=== PATIENT | female | born 1985 | race Asian ===

== ENCOUNTER 2024-05-09 09:07 | Outpatient (REF) | payer SELFPAY ==
--- OUTSIDE RECORDS SUMMARY | 2024-05-09 09:31 | XMS_ITS | Encounter Summary ---
Author Organization [employer] Address [address] [place] [address] [address] [place] [address] Care Team Providers Care Senior Oracle Developer Name Role Phone Maryann Galarza MD Primary Care Provider Reason for Visit * Consultation (Routine) - Pending Review Specialty Diagnoses / Procedures Referred By Reymundo lake Referred To Contact Nutrition Diagnoses Overweight Maryann Galarza MD [address] [place] [address] Phone: tel: fax: Referral ID Status Reason Start Date Expiration Date Visits Requested Visits Authorized [id number] Pending Review Specialty Services Required 03/05/2025 1 1 Encounter Details Date Type Department Care Team ([facility] st Contact Info) Description 04/25/2024 11:00 AM EST Nutrition [facility] DIABETES/NUTRITION [address] [place] [address] Carly Chappell, RD [address] [place] [address] Overweight Social History Tobacco Use Types Packs/Day Years Used Date Smoking Tobacco: Never Passive Smoke Exposure: Never Smokeless Tobacco: Never Alcohol Use Standard Drinks/Week Comments Yes 0 (1 standard drink = 0.6 oz pur e alcohol) socially Depression Answer Date Recorded Patient Health Questionnaire-9 Score 3 03/05/2024 Patient Health Questionnaire-9 Score 3 03/05/2024 Last PHQ-9: Questionnaire Data Not on file 1 05/06/2023 Housing Stability Answer Date Recorded What is your housing situation today? I have jacqueline ford 02/20/[address] you li ve. Do you have problems with any of the following? None of the above 02/20/2024 Food Insecurity Answer Date Recorded Within the past 12 months, y ou worried that your food would run out before you got money to buy more: Never True 02/20/2024 Within the past 12 months,th e food you bought just didn't last and you didn't have enough money to get more: Never True Transportation Answer Date Recorded In the past 12 months, has l ack of transportation kept you from medical appts, meetings, work or from getting things needed for daily living? No 02/20/2024 Utilities Answer Date Recorded In the past 12 months, has t he [employer], gas, oil or water company threatened to shut off services in your home? No 02/20/2024 Depression Answer Date Recorded Patient Health Questionnaire-2 Score 0 03/05/2024 Internet Access Answer Date Recorded Internet Access Q1 Yes 02/20/2024 Internet Access Q2 Not on file 02/20/2024 Comments Unknown Sex and Gender Information Value Date Recorded Sex Assigned at Female 03/05/2024 2:41 PM EST Legal Sex Female 2:41 PM EST Gender Identity Female 12/17/2023 10:33 AM EDT Sexual Orientation Straight 12/17/2023 10 :33 AM EDT documented as of this encounter Last Filed Vital Signs Vital Sign Reading Time Taken Comments Blood Pressure - - Pulse - - Temperature - - Respiratory Rate - - Oxygen Saturation - - Inhaled Oxygen Concentration - - Weight 65.6 kg (144 lb 9.6 oz) 04/28/2024 1:46 P M EST Height 160 cm (5' 3 ) 04/28/2024 1:46 PM EST Body Mass Index 25.61 04/28/2024 1:46 PM EST documented in this encounter Progress Notes * Carly Chappell RD - 04/25/2024 11:00 AM EST In Person Visit Medical Diagnosis: E66.3 Overweight Anthropometrics: Ht:5' 3 (1.6 m), Wt:144 lb 9.6 oz (65.6 kg), BMI: Body mass index is 25.61 kg/m??. Assessment: Patient (Pt) accepted nutrition education assessment appointment with RD. RD took Pt's weight. Weight revealed a slight increase since the last weight noted here in Pt's chart by 0.[address] took 24 hour recall/ typical daily intake from Pt. Intake revealed Pt's diet is high in refine carbohydrates and low in: protein, healthy fats, fresh and cooked vegetables, fruit, whole grains and fiber. Today, Pt only did the first half of First appointment. Once the second half of First appointment is finished, RD will fill in nutrition diagnosis, nutrition Intervention, goals, Tailored made meal plan, monitoring and evaluation will be put into Pt's chart here. Thus, all is to be followed by Pt with their agreement. The second half of First nutrition education assessment appointment is scheduled in the third week of April 2024. In the mean time, Pt agreed to work on: Rice from one cup to 1/2 cup Splenda in stead of the pink packet Try salads Try Skinny Pop and Smart food pop corn Food Allergies: shrimp Exercise: Pt works out at a gym four (4) days per week. Food Intolerance: Didn't say Food Preferences: Bagels, breads, rice, noodles, stews, fruit beverages: cranberries, sauces, rice, pasta, noodles, zucchini, broccoli, cucumbers, onions, garlic, mixed veg, water, stewed beef, stewed chicken, pork, beef, cream cheese, cheese, milk, 1/2 & 1/2 Food Dislikes: Red/ bloody meat- needs to be well done. Frequency of Eating Out/ Restaurant: Pt didn't say. Not the norm? Who Cooks?: Patient How much caffeine?: None; moringa tea How much sugary beverages?: none Diet History: Breakfast: Jose Alejandro, med.: one Cream cheese: 2-4 tablespoons Coffee: 1 cups Berries: 1/2 cup Snack: None Water: 1/2 cup Lunch: Rice: 1 cup Chicken: 4 oz. Broccoli: 3/4 cup Water: 2+ cups Snack: none Dinner: Rice: 1 1/2 cups Meat: 6-8 oz. Ve oz. Salad, fresh: 1-2 cups Water: 1-2 cups Snack: Cream cheese: amount not given Peanut butter: 1-2 tablespoons Nutrition Diagnosis: 1st half of First appointment was done today. When the 2nd half of First appointment is finished/ done, this area will be filled in. Nutrition Intervention: 1st half of First appointment was done today. When the 2nd half of First appointment is finished/ done, this area will be filled in. Monitoring and Evaluation: 1st half of First appointment was done today. When the 2nd half of First appointment is finished/ done, this area will be filled in. Provider: Carly Chappell RD, LDN documented in this encounter Plan of Treatment Upcoming Encounters Date Type Department Care Team (Late st Contact Info) Description 05/16/2024 9:00 AM EST Clinical Support [facility] DIABETES/NUTRITION [address] [place] [address] [place] [address] documented as of this encounter Visit Diagnoses Diagnosis Overweight documented in this encounter Additional Health Concerns Assessment Noted Time PHQ-9 Depression Total Score: 3 03/05/20 24 2:24 PM EST documented as of this encounter Care Teams Senior Oracle Developer Relationship Specialty Start Date End Date Maryann Galarza MD [address] [place] [address] PCP - General Family Medicine 02/11/24 documented as of this encounter
--- OUTSIDE RECORDS SUMMARY | 2024-05-09 09:31 | XMS_ITS | Encounter Summary ---
Author Organization [employer] Address [address] [facility] 7t [place] [address] Care Team Providers Care Accountant Cost Name Role Phone Maryann Galarza MD Primary Care Provider [phone] Encounter Details Date Type Department Care Team (Latest Contact Info) Description 04/25/2024 Travel Social History Tobacco Use Types Packs/Day Years [...] the past 12 months, has t he electric, gas, oil or water company threatened to [...] AM EDT documented as of this encounter Plan of Treatment Upcoming Encounters Date Type Department Care Team (Late st Contact Info) Description 05/16/2024 9:00 AM EST Clinical Support [facility] DIABETES/NUTRITION [address] [place] [address] [place] [address] documented as of this encounter Visit Diagnoses Not on filedocumented in this encounter Additional Health Concerns Assessment Noted Time PHQ-9 Depression Total Score: 3 03/05/20 2:24 PM EST documented as of this encounter Care Teams Accountant Cost Relationship Specialty Start Date End Date Maryann Galarza MD [address] [place] [address] PCP - General Family Medicine 02/11/24 documented as of this encounter
--- OUTSIDE RECORDS SUMMARY | 2024-05-09 09:31 | XMS_ITS | Encounter Summary ---
Author Organization [employer] Address [address] [facility] [address] [place] [address] Care Team Providers Care Paper Products Inspector Name Role Phone Maryann Galarza MD Primary Care Provider [phone] Encounter Details Date Type Department Care Team (Late st Contact Info) Description 04/01/2024 Orders Only [facility] CHC MED & PEDS [address] [place] [address] Provider, MD Mike Social History Tobacco Use Types Packs/Day Years [...] Description 05/16/2024 9:00 AM EST Clinical Support [facility] DIABETES/NUTRITION [address] [place], [place] [phone] Carly Chappell RD [address] [place] [address] documented as of this encounter Procedures Procedure Name Priority Date/Time Associated Diagnosis Comments SURGICAL PATHOLOGY Routine 02/12/2024 3:16 PM EST documented in this encounter Results * Surgical Pathology (02/12/2024 3:16 PM EST) us Historical Provider LAB PATHOLOGY ORDERABLES Final Result documented in this encounter Visit Diagnoses Not on filedocumented in this encounter Additional Health Concerns Assessment Noted Time PHQ-9 Depression Total Score: 3 03/05/20 24 2:24 PM EST documented as of this encounter Care Teams Paper Products Inspector Relationship Specialty Start Date End Date Maryann Galarza MD [address] [place] [address] PCP - General Family Medicine 02/11/24 documented as of this encounter
--- OUTSIDE RECORDS SUMMARY | 2024-05-09 09:31 | XMS_ITS | Encounter Summary ---
Author Organization [facility] [employer] Address [address] [place] [address] [place] [address] Care Team Providers Care Liquified Natural Gas Technician Name Role Phone Christiano Queen MD Primary Care Prov ider Maryann Galarza MD Primary Care Provider [phone] Encounter Details Date Type Department Care Team (Late st Contact Info) Description 12/20/2023 Orders Only [facility] [address] [place] [address] Provider, MD Mike Social History Tobacco Use Types Packs/Day Years Used Date Smoking Tobacco: Never Assessed Depression Answer Date Recorded Patient Health Questionnaire-9 Score 0 12/17/2023 Patient Health Questionnaire-9 Score 0 12/17/2023 Last PHQ-9: Questionnaire Data Not on file 0 12/17/2023 Depression Answer Date Recorded Patient Health Questionnaire-2 Score 0 12/17/2023 Comments Unknown Sex and Gender Information Value [...] Description 05/16/2024 9:00 AM EST Clinical Support [facility] DIABETES/NUTRITION [address] [place], [place] [phone] Carly Chappell RD [address] [place], [place] [phone] documented as of this encounter Procedures Procedure Name Priority Date/Time Associated Diagnosis Comments US ABDOMEN, RIGHT UPPER QUADRANT Routine 12/13/2023 10:43 AM EDT documented in this encounter Results * US ABDOMEN, RIGHT UPPER QUADRANT (12/13/2023 10:43 AM EDT) Anatomical Region Laterality Modality Abdomen Ultrasound us Historical Provider MD [facility] US PROCEDURES Final R esult documented in this encounter Visit Diagnoses Not on filedocumented in this encounter Additional Health Concerns Assessment Noted Time PHQ-9 Depression Total Score: 0 12/17/19 2:26 PM EDT documented as of this encounter Care Teams Liquified Natural Gas Technician Relationship Specialty Start Date End Date Christiano Queen MD [address] [place] [address] PCP - General Internal Medicine 12/19/23 02/10/24 Maryann Galarza MD [address] [place] [address] PCP - General Family Medicine 02/11/24 documented as of this encounter
--- OUTSIDE RECORDS SUMMARY | 2024-05-09 09:31 | XMS_ITS | Clinical Summary ---
Author Organization [employer] Address [address] [place] [address] 7t [place] [address] Care Team Providers Care Vascular Sonographer Name Role Phone Maryann Galarza MD Primary Care Provider [phone] Allergies Active Allergy Reactions Criticality Noted Date Comments Shrimp Flavor Agent (Non-Screening) Hives,Itching 03/04/2024 Medications omeprazole (PriLOSEC) [address] capsule Take 1 capsule (20 mg) by mouth before breakfast. 90 capsule 1 02/12/2024 Active oxyCODONE (Roxicodone) 5 MG immediate release tablet Take 5 mg by mouth every 6 (six) hours if needed. 02/13/2024 Active Meclizine HCl 25 MG chewable tablet Active benzonatate (Tessalon) 100 MG capsule Take 100 mg by mouth 3 times daily. 12/24/2023 Active albuterol 108 (90 Base) MCG/ACT inhaler TAKE 2 PUFFS (INHALATION) 4 TIMES PER DAY (SHORTNESS OF BREATH OR WHEEZING) FOR 14 DAYS 07/26/2023 Active Active Problems Problem Noted Date Diagnosed Date Overweight 03/05/2024 Assessment & Plan (03/05/2024 2:54 PM EST): Ordering labs and referring to Defect Repairer Glassware for further evaluation. Advised pt to schedule Pap Smear at earliest convenience. Generalized abdominal pain 02/11/2024 Assessment & Plan (02/11/2024 4:04 PM EST): Patient complains of similar ruq pain as in the past, graded 6/10, no radiation, denied fever/chills, nausea/vomiting/diarrhea, will refer to general surgery, er precautions reviewed. Also complains of epigastric pain, will send omeprazole, diet recommendations were given Encounter for medical examination to establish c are 01/16/2024 Assessment & Plan (01/16/2024 1:17 AM EDT): Not seen by a pcp in over 1 year Hospitalziation:- ER: 12/13/23 due to RUQ pain Pmhx: BPV All - Psh - Meds meclizine prn for vertigo Not sexually active A0 Has IUD unknown when was placed Pap smear was done but could not recall date Vertigo 01/16/2024 Assessment & Plan (01/16/2024 1:16 AM EDT): Patient on meclizine as needed RUQ pain 01/16/2024 Assessment & Plan (01/16/2024 1:22 AM EDT): Seen at er where a ultrasound was performed, found with gallstones, no acute cholecystitis, incidental 2.2 cm hypoechoic focus n right hepatic lobe that could be related to focal sparing of fatty infiltration, a non-urgent MRI was recommended. She was discharged with dx of biliary colic, pain/symptoms have not recurred. Will place mri order Gallbladder & bile duct ston e, acute cholecystitis and obstruction 12/13/2023 Encounters Date Type Department Care Team Description 04/25/2024 11:00 AM EST Nutrition [facility] DIABETES/NUTRITION [address] [place] [address] Overweight 04/25/2024 Travel 04/01/2024 Orders Only [facility] CHC MED & PEDS [address] [place] [address] Mike Navas MD 03/05/2024 2:00 PM EST Office Visit [facility] MED & PEDS [address] [place] [address] Maryann Galarza MD Overweight (Primary Dx); Encounter for immunization; Encounter for health-related screening 03/05/2024 Travel 03/05/2024 Telephone [facility] MED & PEDS [address] [place] [address] Maryann Galarza MD CHART PREP 02/20/2024 Patient Outreach [facility] MED & PEDS [address] [place] [address] Maryann Galarza MD Pre-visit Planning (SDOH negative, Tobacco screening negative.) 02/14/2024 Telephone [facility] [address] [place], [place] [phone] Christiano Queen MD 02/11/2024 3:15 PM EST Telemedicine [facility] MED & PEDS [address] [place] [address] Christiano Queen MD Generalized abdominal pain (Primary Dx) 02/11/2024 Refill [facility] MED & PEDS [address] [place] [address] Christiano Queen MD 02/11/2024 Travel from Last 3 Months Immunizations Name Administration Dates Next Due Influenza, IIV3, injectable 02/13/2024 Influenza, seasonal, injectable, preservative fr ee 02/13/2024 Pfizer Covid-19 Vaccine 12+ 03/05/2024 Tdap 03/05/2024 Family History Medical History Relation Name Comments Heart disease Father Diabetes Mother Cancer Neg Hx Relation Name Status Comments Father Mother Social History Tobacco Use Types Packs/Day Years Used Date Smoking Tobacco: Never Passive Smoke Exposure: Never Smokeless Tobacco: Never Tobacco Cessation:Counseling Given: Not Answered Alcohol Use Standard Drinks/Week Comments Yes 0 [...] Orientation Straight 12/17/2023 10 :33 AM EDT Last Filed Vital Signs Vital Sign Reading Time Taken Comments Blood Pressure 130/82 03/05/2024 2:21 PM EST Pulse 68 03/05/2024 2:21 PM EST Temperature 36.9 ??C (98.4 ??F) 03/05/2024 2:21 PM ES T Respiratory Rate 20 03/05/2024 2:21 PM EST Oxygen Saturation 98% 03/05/2024 2:21 PM EST Inhaled Oxygen Concentration - - Weight 65.6 kg (144 lb 9.6 oz) 04/28/2024 1:46 P M EST Height 160 cm (5' 3 ) 04/28/2024 1:46 PM EST Body Mass Index 25.61 04/28/2024 1:46 PM EST Plan of Treatment Upcoming Encounters Date Type Department Care Team (Late st Contact Info) Description 05/16/2024 9:00 AM EST Clinical Support [facility] DIABETES/NUTRITION [address] [place] [address] [place] [address] Health Maintenance Due Date Last Done Comments HIV Screening 1984 Family Planning (PISQ) 07/31/1999 Hepatitis C Screening 2002 Hepatitis A Vaccines (1 of 2 - Risk 2-dose series) 07/31/2003 Pap Smear 2005 Cervical Cancer Screening 2014 HPV/Cotest 2014 SDOH Screening 02/19/2025 02/20/2024 Alcohol/Substance Use Screening 03/05/2025 03/05/2024 Depression Screening 03/05/2025 03/05/2024, 03/05/20 24 Tobacco Screening 03/05/2025 03/05/2024 DTaP/Tdap/Td Vaccines (4 - Td or Tdap) 03/05/2034 03/05/2024, 07/23/2015, 04/26/2014 Zoster Vaccines (1 of 2) 2034 RSV Patients and Patients Aged 60 years or older (1 - 1-dose 75+ series) 07/31/2059 Pneumococcal Vaccine: Pediatrics (0 to 5 Years) and At-Risk Patients (6 to 49) Years) Aged Out 02/14/2016 No longer eligible based on patient's age to complete this topic Hepatitis B Vaccines Completed 07/27/2022, 06/26/2022, 12/11/2014, Additional history exists Influenza Vaccine Completed 02/13/2024, , 12/27/2020, Additional history exists COVID-19 Vaccine Completed 03/05/2024, 03/2020, 05/03/2020, Additional history exists HIB Vaccines Aged Out No longer eligi ble based on patient's age to complete this topic HPV Vaccines Aged Out No longer eligi ble based on patient's age to complete this topic IPV Vaccines Aged Out No longer eligi ble based on patient's age to complete this topic Meningococcal Vaccine Aged Out No lidia davi eligible based on patient's age to complete this topic RSV under 20 months Aged Out No longe r eligible based on patient's age to complete this topic Rotavirus Vaccines Aged Out No longer eligible based on patient's age to complete this topic Procedures Procedure Name Priority Date/Time Associated Diagnosis Comments SURGICAL PATHOLOGY Routine 02/12/2024 3:16 PM EST from Last 3 Months Results * Surgical Pathology (02/12/2024 3:16 PM EST) Historical Provider LAB PATHOLOGY ORDERABLES Final Result from Last 3 Months Insurance [facility] HMO Care Teams Vascular Sonographer Relationship Specialty Start Date End Date Maryann Galarza MD [address] [place] [phone] PCP - General Family Medicine 02/11/24
[2024-05-09 14:12] LABS: MANUAL DIFF FLAG NO
[2024-05-09 14:22] LABS: Basophils Absolute Auto 0.1 X10*3/uL (0.0-0.2); Basophils Percent Auto 1.2 % (0-2); Eosinophils Absolute Auto 0.1 X10*3/uL (0.0-0.4); Eosinophils Percent Auto 1.9 % (0-4); Hematocrit 38.4 % (37.0-47.0); Hemoglobin 12.3 g/dl (12.0-16.0); Imm Gran Abs Auto 0.02 X10*3/uL (0.00-0.03); Imm Gran Pct Auto 0.3 % (0.0-0.4); Lymphocytes Absolute Auto 1.8 X10*3/uL (1.2-4.9); Lymphocytes Percent Auto 30.2 % (20-40); Mean Corpuscular Hemoglobin 26.5 pg (27.0-33.0); Mean Corpuscular Volume 82.6 fL (80.0-98.0); Mean Platelet Volume 11.5 fL (9.4-12.3); Monocytes Absolute Auto 0.3 X10*3/uL (0.1-1.2); Monocytes Percent Auto 5.3 % (2-11); Neutrophils Absolute Auto 3.6 x10*3/uL (2.0-8.3); Neutrophils Percent Auto 61.1 % (45-73); Platelet Count 267 X10*3/uL (160-400); Red Blood Count 4.65 X10*6/uL (4.20-5.50); Red Cell Distribution Width 12.7 % (11.0-16.0); White Blood Count 5.9 X10*3/uL (4.8-10.8)
[2024-05-09 14:58] LABS: Alanine Aminotransferase 42 U/L (0-31); Albumin Level 4.4 g/dL (3.5-5.0); Alkaline Phosphatase 74 U/L (39-117); Anion Gap 10 (12-20); Aspartate Amino Transferase 29 U/L (5-31); Bilirubin Total 0.6 mg/dL (0.0-1.0); Blood Urea Nitrogen 10 mg/dL (9-16); Calcium 9.2 mg/dL (8.4-10.2); Carbon Dioxide 26 mmol/L (22-29); Chloride 108 mmol/L (96-108); Cholesterol 141 mg/dL (<200); Estimated Glomerular Filt Rate > 60; Glucose Fasting 98 mg/dL (60-99); HDL Cholesterol 46 mg/dL (>40); LDL Cholesterol Calculated 84 mg/dL (<100); Potassium 3.9 mmol/L (3.3-5.1); Sodium 140 mmol/L (135-145); Total Protein 7.8 g/dL (6.5-8.0); Triglycerides 58 mg/dL (<150)
[2024-05-09 14:59] LABS: TSH reflex Free T4 1.14 uIU/mL (0.32-4.0)
[2024-05-10 03:58] LABS: HBS Num1 78.23 mIU/mL (0-7.99); HBc Num1 0.25 S/CO (0.00-0.79); HBsAGNum1 0.38 S/CO (0.00-0.99); HIV AB/AG Nonreactive (Nonreactive); HIV Num 1 0.06 S/CO (0.00-0.99); Hepatitis B Core Antibody Nonreactive (Nonreactive); Hepatitis B Surface Antigen Negative (Negative); ~HepC Num1 0.81 S/CO (0.00-0.79); ~Hepatitis B Surface Antibody REACTIVE (Nonreactive)
[2024-05-10 04:37] LABS: ~HepC Num2 0.85; ~HepC Num3 0.83; ~Hepatitis C Antibody GRAYZONE (Nonreactive)
[2024-05-13 13:34] LABS: HCV Log PCR <1.18 NOT DETECTED Log IU/mL (NOT DETECTED); HepC Viral Load <15 NOT DETECTED IU/mL (NOT DETECTED)
== END 2024-05-09 09:08 | disposition home or self-care (01) ==
LOC: HO.CHCLDS 09:07
PROVIDERS: Visit Provider Family Medicine
DX: E66.3 Overweight (principal)
CPT/HCPCS: 36415; 80053; 80061; 84443; 85025; 86704; 86706; 86803; 87340; 87389; 87522

== ENCOUNTER 2025-01-06 10:00 | Outpatient (REF) | payer BC, SELFPAY ==
--- OUTSIDE RECORDS SUMMARY | 2025-01-06 09:20 | XMS_ITS | Encounter Summary ---
Author Organization [employer] Address [address] [place] [address] Care Team Providers Care Medical Record Administrator Name Role Phone Maryann Galarza MD Primary Care Provider [phone] Reason for Visit * Reason Comments Cervical Cancer Screening Encounter Details Date Type Department Care Team (Latest Contact Info) Description 01/06/2025 9:20 AM EDT Office Visit [facility] [address], [place] [phone] Maryann Galarza MD [address] [place] [address] Encounter for removal of intrauterine contraceptive device (IUD) (Primary Dx); Encounter for immunization; Overweight; STD (female); Cervical cancer screening Social History Tobacco Use Types Packs/Day Years [...] Sign Reading Time Taken Comments Blood Pressure 134/84 01/06/2025 9:18 AM EDT Pulse 76 01/06/2025 9:18 AM EDT Temperature 36.2 C (97.2 F) 01/06/2025 9:18 AM EDT Respiratory Rate 20 01/06/2025 9:18 AM EDT Oxygen Saturation 98% 01/06/2025 9:18 AM EDT Inhaled Oxygen Concentration - - Weight 67.8 kg (149 lb 6.4 oz) 01/06/2025 9:18 A M EDT Height 161 cm (5' 3.39 ) 01/06/2025 9:18 AM EDT Body Mass Index 26.14 01/06/2025 9:18 AM EDT documented in this encounter Progress Notes * Maryann Galarza MD - 01/06/2025 9:20 AM EDTAssociated Order(s): IUD Management Post-Procedure Diagnose(s): Cervical cancer screening Subjective Patient ID: Clau Carmona is a 39 y.o. female who presents for Cervical Cancer Screening. 39 y.o. female here for annual well woman preventive exam. LMP: No LMP recorded (lmp unknown). Sexual activity: Social History Substance and Sexual Activity Sexual activity: Not Currently Partners: Male control/protection: I.U.D. intention: BC method: Smoking hx: Tobacco Use: Low Risk (01/06/2025) Tobacco Smoking Tobacco Use: Never Smokeless Tobacco Use: Never Passive Exposure: Never Alcohol use hx: Social History Substance and Sexual Activity Alcohol use: Yes Comment: socially OBHx: No obstetric history on file. IPV: Denies IPV Reviewed family hx Review of patient's family history indicates: Problem: Diabetes Relation: Mother Name: Age of Onset: (Not Specified) Problem: Heart disease Relation: Father Name: Age of Onset: (Not Specified) Problem: Cancer Relation: Neg Hx Name: Age of Onset: (Not Specified) Health Maintenance: No results found for: HMPAP , HMMAMMO , HMCOLON Reports wants IUD removed due to cramps. Had Mirena, reports inserted 5-7 years ago. Discussed contraception. Review of Systems Constitutional: Negative for appetite change, fatigue and fever. HENT: Negative for congestion, postnasal drip and rhinorrhea. Eyes: Negative for discharge and redness. Respiratory: Negative for apnea, cough, chest tightness and shortness of breath. Cardiovascular: Negative for chest pain. Gastrointestinal: Negative for abdominal pain. Endocrine: Negative for polyphagia. Genitourinary: Negative for difficulty urinating, dysuria and urgency. Musculoskeletal: Negative for arthralgias. Neurological: Negative for dizziness, light-headedness, numbness and headaches. Hematological: Negative for adenopathy. Does not bruise/bleed easily. Objective BP 134/84 Pulse 76 Temp 97.2 ??F (36.2 ??C) (Oral) Resp 20 Ht 5' 3.39 (1.61 m) Wt 149 lb6.4 oz (67.8 kg) LMP (LMP Unknown) SpO2 98% BMI 26.14 kg/m?? Physical Exam Vitals reviewed. Exam conducted with a synoptic meteorologist present. HENT: Head: Normocephalic and atraumatic. Pulmonary: Effort: Pulmonary effort is normal. Chest: Chest wall: No deformity, tenderness or crepitus. Breasts: Breasts are symmetrical. Right: Normal. No inverted nipple, mass, nipple discharge, skin change or tenderness. Left: Normal. No inverted nipple, mass, nipple discharge, skin change or tenderness. Genitourinary: Urethra: No prolapse. Vagina: Normal. Cervix: Normal. Rectum: Normal. Musculoskeletal: Cervical back: Normal range of motion. Lymphadenopathy: Upper Body: Right upper body: No supraclavicular, axillary or pectoral adenopathy. Left upper body: No supraclavicular, axillary or pectoral adenopathy. Psychiatric: Mood and Affect: Mood normal. IUD Management Performed by: Maryann Galarza MD Authorized by: Maryann Galarza MD Procedure: IUD removal Consent obtained by patient, parent, or legal power of document review attorney - including discussion of procedurerisks and benefits, patient questions answered, and patient education provided: yes Reason for removal: patient request Strings visualized: yes Tenaculum applied to cervix: yes Cervix manually dilated: no IUD grasped by forceps: no Performed with ultrasound guidance: no IUD removed: yes Date/Time of Removal: 01/06/2025 10:01 AM Removed without complications: yes IUD intact: yes Removal comments: Removed by Yadira Kohler NP under direct supervision from Chastity Galarza MD Assessment/Plan Problem List Items Addressed This Visit Overweight Will check labs Relevant Medications levonorgestrel (Plan B) 1.5 MG tablet Other Relevant Orders Lipid Panel, Standard CBC auto differential Comprehensive Metabolic Panel TSH W/Reflex to FT4 Encounter for removal of intrauterine contraceptive device (IUD) - Primary Removed. No complications Relevant Medications levonorgestrel (Plan B) 1.5 MG tablet Other Relevant Orders POCT Urine (Completed) Pap Smear HPV High Risk with Reflex to Subtypes STI testing add on (NG, CT, Trich) Cervical cancer screening 39 y.o. here for cervical cancer screening. Will continue monitoring following ASCCP guidelines. Relevant Medications levonorgestrel (Plan B) 1.5 MG tablet Other Visit Diagnoses Encounter for immunization Relevant Orders FLU VACCINE TRIVALENT [id number] (Fluarix) 19 yrs + STD (female) Relevant Orders Syphilis Screen Hepatitis C Antibody with Reflex to HCV, RNA, Quantitative, Real-Time PCR HIV-1/2 Antigen and Antibodies, Fourth Generation, with Reflexes documented in this encounter Miscellaneous Notes * Assessment & Plan Note - Maryann Galarza MD - 01/06/2025 10:23 AM EDT Associated Problem(s): Cervical cancer screening 39 y.o. here for cervical cancer screening. Will continue monitoring following ASCCP guidelines. * Assessment & Plan Note - Maryann Galarza MD - 01/06/2025 10:23 AM EDT Associated Problem(s): Encounter for removal of intrauterine contraceptive device (IUD) Removed. No complications * Assessment & Plan Note - Maryann Galarza MD - 01/06/2025 10:22 AM EDT Associated Problem(s): Overweight Will check labs documented in this encounter Plan of Treatment Scheduled Orders Name Type Priority Associated Diagnoses Orde r Schedule Pap Smear Pathology and Cytology Routine Encounter for removal of intrauterine contraceptive device (IUD) Ordered: 01/06/2025 HPV High Risk with Reflex to Subtypes Lab Routine Encounter for removal of intrauterine contraceptive device (IUD) Ordered: 01/06/2025 STI testing add on (NG, CT, Trich) Pathology and Cytology Routine Encounter for removal of intrauterine contraceptive device (IUD) Ordered: 01/06/2025 documented as of this encounter Procedures Procedure Name Priority Date/Time Associated Diagnosis Comments SYPHILIS SCREEN Routine 01/06/2025 10:20 AM EDT STD (female) TSH W/REFLEX TO FT4 Routine 01/06/2025 1 0:20 AM EDT Overweight CBC WITH AUTO DIFFERENTIAL Routine 01/06/2025 10:20 AM EDT Overweight HEPATITIS C AB W/REFL TO HCV RNA, QN, PCR Routine 01/06/2025 10:20 AM EDT STD (female) HIV 1/2 ANTIGEN/ANTIBODY, FOURTH GENERATION W/RFL Routine 01/06/2025 10:20 AM EDT STD (female) LIPID PANEL, STANDARD Routine 01/06/2025 10:20 AM EDT Overweight COMPREHENSIVE METABOLIC PANEL Routine 01/06/2025 10:20 AM EDT Overweight POCT , URINE Routine 01/06/2025 9:49 AM EDT Encounter for removal of intrauterine contraceptive device (IUD) CO REMOVAL INTRAUTERINE DEVICE IUD Routine 01/06/2025 9:20 AM EDT Cervical cancer screening documented in this encounter Results * HIV-1/2 Antigen and Antibodies, Fourth Generation, with Reflexes (01/06/2025 10:20 AM EDT) [facility] HIV AB/AG Nonreactive Nonreactive [facility] Comment:HIV-1 p24 Ag and/or HIV-1/HIV-2 Ab not detected.A test result that is nonreactive does not exclude thepossibility of exposure to or infection with HIV-1 and/orHIV-2. Nonreactive results in this assay for individualswith prior exposure to HIV-1 and/or HIV-2 may be due toantigen and antibody levels that are below the limit ofdetection of this assay.The Attune HIV Ag/Ab Combo assay result andsupplemental assay results should be interpreted inconjunction with the patient's clinical presentation,history and other laboratory results. If the results areinconsistent with clinical evidence, additional testing issuggested to confirm the result. Blood Venous blood specimen / Unknown 01/06/2025 10:20 AM EDT 01/06/2025 1:47 PM EDT us Maryann Galarza MD LAB BLOOD ORDERABLES Final Re sult [facility] [address] [place] [phone] * Hepatitis C Antibody with Reflex to HCV, RNA, Quantitative, Real-Time PCR (01/06/2025 10:20 AM EDT) Pathologist [facility] Hepatitis C Antibody Nonreactive Nonreactive [facility] Comment:Antibodies to HCV no t detected; does not exclude early acuteHCV infection. Blood Venous blood specimen / Unknown 01/06/2025 10:20 AM EDT 01/06/2025 1:47 PM EDT us Maryann Galarza MD LAB BLOOD ORDERABLES Final Re sult Performing Organization Address [facility] Co de Phone Number [facility] [address] [place] [phone] * Syphilis Screen (01/06/2025 10:20 AM EDT) Pathologist [facility] Syphilis Screen Nonreactive Nonreactive [facility] Blood 01/06/2025 10:2 0 AM EDT 01/06/2025 1:47 PM EDT us Maryann Galarza MD LAB BLOOD ORDERABLES Final Re sult Performing Organization Address [facility] de Phone Number [facility] [address] [place] [phone] * TSH W/Reflex to FT4 (01/06/2025 10:20 AM EDT) [facility] TSH reflex Free T4 1.86 0.32 - 4.0 uIU/mL [facility] Blood Venous blood specimen / Unknown 01/06/2025 10:20 AM EDT 01/06/2025 1:47 PM EDT us Maryann Galarza MD LAB BLOOD ORDERABLES Final Re sult Performing Organization Address [facility] de Phone Number [facility] [address] [place] [phone] * (ABNORMAL) Comprehensive Metabolic Panel (01/06/2025 10:20 AM EDT) Pathologist [facility] Sodium 142 135 - 145 mmol/L [facility] Potassium 4.1 3.3 - 5.1 mmol/L [facility] Chloride 110(H) 96 - 108 mmol/L [facility] Carbon Dioxide 26 22 - 29 mmol/L [facility] Anion Gap 10(L) 12 - 20 [facility] Urea Nitrogen (BUN) 8(L) 9 - 16 mg/dL [facility] Creatinine, Serum 0.59 0.5 - 1.4 mg/dL [facility] Estimated Glomerular Filt Rate >60 [facility] Comment:Chronic Kidney Disea se: Estimated GFR < 60 mL/min/[id number] Kidney Disease: Estimated GFR < 15 mL/min/1.73m2 Glucose 97 60 - 115 mg/dL [facility] Calcium 9.1 8.4 - 10.2 mg/dL [facility] Bilirubin, Total 0.6 0.0 - 1.0 mg/dL [facility] Aspartate Amino Transferase 24 5 - 31 U/L [facility] Alanine Aminotransferase 36(H) 0 - 31 U/L [facility] Total Protein 7.5 6.5 - 8.0 g/dL [facility] Albumin Level 4.7 3.5 - 5.0 g/dL [facility] Alkaline Phosphatase 70 39 - 117 U/L [facility] Blood Venous blood specimen / Unknown 01/06/2025 10:20 AM EDT 01/06/2025 1:47 PM EDT us Maryann Galarza MD LAB BLOOD ORDERABLES Final Re sult [facility] [address], [place] [phone] * (ABNORMAL) CBC auto differential (01/06/2025 10:20 AM EDT) Pathologist [facility] White Blood Count 7.2 4.8 - 10.8 X10*3/uL [facility] Red Blood Count 4.62 4.20 - 5.50 X10*6/uL [facility] Hemoglobin 12.1 12.0 - 16.0 g/dl [facility] Hematocrit 39.3 37.0 - 47.0 % [facility] Mean Corpuscular Volume 85.1 80.0 - 98.0 fL [facility] Mean Corpuscular Hemoglobin 26.2(L) 27.0 - 33.0 pg [facility] Mean Corpuscular HGB Conc 30.8(L) 31.0 - 35.0 g/dl [facility] Red Cell Distribution Width 12.7 11.0 - 16.0 % [facility] Platelet Count 242 160 - 400 X10*3/uL [facility] Mean Platelet Volume 12.0 9.4 - 12.3 fL [facility] Neutrophils Percent Auto 62.1 45 - 73 % [facility] Imm Gran Pct Auto 0.3 0.0 - 0.4 % [facility] Lymphocytes Percent Auto 29.0 20 - 40 % [facility] Monocytes Percent Auto 5.8 2 - 11 % [facility] Eosinophils Percent Auto 1.7 0 - 4 % [facility] Basophils Percent Auto 1.1 0 - 2 % [facility] NRBC Pct Auto 0.0 0.0 - 0.2 /100WBC [facility] Neutrophils Absolute Auto 4.5 2.0 - 8.3 x10*3/uL [facility] Imm Gran Abs Auto 0.02 0.00 - 0.03 X10*3/uL [facility] Lymphocytes Absolute Auto 2.1 1.2 - 4.9 X10*3/uL [facility] Monocytes Absolute Auto 0.4 0.1 - 1.2 X10*3/uL [facility] Eosinophils Absolute Auto 0.1 0.0 - 0.4 X10*3/uL [facility] Basophils Absolute Auto 0.1 0.0 - 0.2 X10*3/uL [facility] NRBC Abs Auto 0.000 0.0 - 0.012 X10*3/uL [facility] Blood Venous blood specimen / Unknown 01/06/2025 10:20 AM EDT 01/06/2025 1:55 PM EDT us Maryann Galarza MD LAB BLOOD ORDERABLES Final Re sult Performing Organization Address [facility] Co de Phone Number [facility] [address] [place] [phone] * (ABNORMAL) Lipid Panel, Standard (01/06/2025 10:20 AM EDT) Triglycerides 87 <150 mg/dL [facility] Comment:Desirable Triglyceri de: less than 150 mg/dLBorderline High Triglyceride 150-199 mg/dLHigh Triglyceride: 200-499 mg/dLVery High Triglyceride: greater than or equal to 5OO mg/dL Cholesterol 148 <200 mg/dL [facility] Comment:Desirable Cholestero l: less than 200 mg/dLBorderline High Cholesterol: 200-239 mg/dLHigh Cholesterol: greater than 239 mg/dL LDL Cholesterol Calculated 92 <100 mg/dL [facility] Comment:Desirable LDL: less than 100 mg/dLNear Optimal/Above Optimal LDL: 110- 129 mg/dLBorderline High LDL: 130-159 mg/dLHigh LDL: 160-189 mg/dLVery High LDL: greater than or equal to 190 mg/dL HDL Cholesterol 39(L) >40 mg/dL [facility] Comment:Desirable HDL: great er than 40 mg/dL Note: This HDL assay may give artificially low results in patients with liver disease. Blood Venous blood specimen / Unknown 01/06/2025 10:20 AM EDT 01/06/2025 1:47 PM EDT us Maryann Galarza MD LAB BLOOD ORDERABLES Final Re sult Performing Organization Address City/[facility]/ZIP Co de Phone Number [facility] [address] [place] [phone] * POCT Urine (01/06/2025 9:49 AM EDT) Preg Test, Ur Negative Negative, Indeterminate, None Detected, Invalid, Specimen unsatisfactory for evaluation, Weakly Positive, 2+ QC Media Lot # [id number] Lot# Expiration Date [id number] Urine 01/06/2025 9:49 AM EDT Maryann Galarza MD POINT OF CARE TEST ENTER/EDIT ORDERABLES Final Result * CO REMOVAL INTRAUTERINE DEVICE IUD (01/06/2025 9:20 AM EDT) Narrative Maryann Galarza MD - 01/06/2025 9:20 AM EDT Maryann Galarza MD 01/06/2025 11:20 AM IUD Management Performed by: Maryann Galarza MD Authorized by: Maryann Galarza MD Procedure: IUD removal Consent obtained by patient, parent, or legal power of document review attorney - including discussion of procedure risks and benefits, patient questions answered, and patient education provided: yes Reason for removal: patient request Strings visualized: yes Tenaculum applied to cervix: yes Cervix manually dilated: no IUD grasped by forceps: no Performed with ultrasound guidance: no IUD removed: yes Date/Time of Removal: 01/06/2025 10:01 AM Removed without complications: yes IUD intact: yes Removal comments: Removed by Yadira Kohler NP under direct supervision from Chastity Galarza MD Maryann Galarza MD IN CLINIC/BEDSIDE ORDERABLES Final Result documented in this encounter Visit Diagnoses Diagnosis Encounter for removal of intrauterine contraceptive device (IUD)- Primary Encounter for immunization Overweight STD (female) Cervical cancer screening Screening for malignant neoplasm of the cervix documented in this encounter Additional Health Concerns Assessment Noted Time PHQ-9 Depression Total Score: 3 03/05/20 24 2:24 PM EST documented as of this encounter Care Teams Medical Record Administrator Relationship Specialty Start Date End Date Maryann Galarza MD [address] [place] [phone] PCP - General Family Medicine 02/11/24 documented as of this encounter
--- OUTSIDE RECORDS SUMMARY | 2025-01-07 17:53 | XMS_ITS | Encounter Summary ---
Author Organization [employer] Address 75 [facility] 7t [place] [address] Care Team Providers Care Disposal Worker Name Role Phone Christiano Queen MD Primary Care Prov ider Maryann Galarza MD Primary Care Provider [phone] Encounter Details Date Type Department Care Team (Late st Contact Info) Description 12/20/2023 Orders Only [facility] [address] [place] [address] Provider, Mike, Social History Tobacco Use Types [...] documented as of this encounter Care Teams Disposal Worker Relationship Specialty Start Date End Date Christiano Queen MD [address] [place] [address] PCP - General Internal Medicine 12/19/23 02/10/24 Maryann Galarza MD [address] [place] [address] PCP - General Family Medicine 02/11/24 documented as of this encounter
--- OUTSIDE RECORDS SUMMARY | 2025-01-07 17:53 | XMS_ITS | Encounter Summary ---
Author Organization [employer] Address [address] [facility] [address] [place] [address] Care Team Providers Care Customer Success Representative Name Role Phone Maryann Galarza MD Primary Care Provider [phone] Encounter Details Date Type Department Care Team [...] documented as of this encounter Care Teams Customer Success Representative Relationship Specialty Start Date End Date Maryann Galarza MD [address] [place] [phone] PCP - General Family Medicine 02/11/24 documented as of this encounter
--- OUTSIDE RECORDS SUMMARY | 2025-01-07 17:53 | XMS_ITS | Clinical Summary ---
Author Organization [employer] Address 75 [facility] [address]t [place] [address] Care Team Providers Care Svp Marketing Name Role Phone Maryann Galarza MD Primary Care Provider [phone] Allergies Active Allergy Reactions Criticality Noted Date [...] PM EST): Ordering labs and referring to Aviation Electronic Warfare Operator for further evaluation. Advised pt to schedule [...] Description 01/06/2025 9:20 AM EDT Office Visit [facility] [address] [place] [address] Maryann Galarza MD Encounter for removal of [...] 03/05/2025 03/05/2024 Depression Screening 03/05/2025 03/05/2024, 03/05/20 Tobacco Screening 01/06/2026 01/06/2025 DTaP/Tdap/Td Vaccines (4 [...] 05/03/2020, Additional history exists HIV Screening Completed 01/06/2025, 05/09/2024 Hepatitis C Screening Completed 01/06/2025 , 05/09/2024, 05/09/2024 Influenza Vaccine Completed 01/06/2025, , 02/13/2024, Additional [...] Procedure Name Priority Date/Time Associated Diagnosis Comments HIV 1/2 ANTIGEN/ANTIBODY, FOURTH GENERATION W/RFL Routine 01/06/2025 10:20 AM EDT STD (female) HEPATITIS C AB W/REFL TO HCV RNA, QN, PCR Routine 01/06/2025 10:20 AM EDT STD (female) SYPHILIS SCREEN Routine 01/06/2025 10:20 AM EDT STD (female) TSH W/REFLEX TO FT4 Routine 01/06/2025 1 0:20 AM EDT Overweight COMPREHENSIVE METABOLIC PANEL Routine 01/06/2025 10:20 AM EDT Overweight CBC WITH AUTO DIFFERENTIAL Routine 01/06/2025 10:20 AM EDT Overweight LIPID PANEL, STANDARD Routine 01/06/2025 10:20 AM EDT Overweight POCT , URINE Routine 01/06/2025 9:49 AM EDT Encounter for removal of intrauterine contraceptive device (IUD) ME REMOVAL INTRAUTERINE DEVICE IUD Routine 01/06/2025 9:20 AM EDT Cervical cancer screening from Last 3 Months Results * Syphilis Screen (01/06/2025 10:20 AM EDT) Syphilis Screen Nonreactive Nonreactive [facility] Blood 01/06/2025 10:2 0 AM EDT 01/06/2025 1:47 PM EDT us Maryann Galarza MD LAB BLOOD ORDERABLES Final Re sult Performing Organization Address [facility]/State/ZIP Co de Phone Number [facility] [address] [place] [phone] * TSH W/Reflex to FT4 (01/06/2025 10:20 AM EDT) TSH reflex Free T4 1.86 0.32 - 4.0 uIU/mL [facility] Blood Venous blood specimen / Unknown 01/06/2025 10:20 AM EDT 01/06/2025 1:47 PM EDT us Maryann Galarza MD LAB BLOOD ORDERABLES Final Re sult [facility] [address] [place], [place] [phone] * (ABNORMAL) CBC auto differential (01/06/2025 10:20 AM EDT) White Blood Count 7.2 4.8 - 10.8 X10*3/uL [facility] Red Blood Count 4.62 4.20 - 5.50 X10*6/uL [facility] Hemoglobin 12.1 12.0 - 16.0 g/dl [facility] Hematocrit 39.3 37.0 - 47.0 % [facility] Mean Corpuscular Volume 85.1 80.0 - 98.0 fL [facility] Mean Corpuscular Hemoglobin 26.2(L) 27.0 - 33.0 pg [facility] Mean Corpuscular HGB Conc 30.8(L) 31.0 - 35.0 g/dl [facility] Red Cell Distribution Width 12.7 11.0 - 16.0 % [facility] Platelet Count 242 160 - 400 X10*3/uL [facility] Mean Platelet Volume 12.0 9.4 - 12.3 fL [facility] Neutrophils Percent Auto 62.1 45 - 73 % [facility] Imm Gran Pct Auto 0.3 0.0 - 0.4 % [facility] Lymphocytes Percent Auto 29.0 20 - 40 % [facility] Monocytes Percent Auto 5.8 2 - 11 % [facility] Eosinophils Percent Auto 1.7 0 - 4 % [facility] Basophils Percent Auto 1.1 0 - 2 % [facility] NRBC Pct Auto 0.0 0.0 - 0.2 /100WBC [facility] Neutrophils Absolute Auto 4.5 2.0 - 8.3 x10*3/uL [facility] Imm Gran Abs Auto 0.02 0.00 - 0.03 X10*3/uL [facility] Lymphocytes Absolute Auto 2.1 1.2 - 4.9 X10*3/uL [facility] Monocytes Absolute Auto 0.4 0.1 - 1.2 X10*3/uL [facility] Eosinophils Absolute Auto 0.1 0.0 - 0.4 X10*3/uL [facility] Basophils Absolute Auto 0.1 0.0 - 0.2 X10*3/uL [facility] NRBC Abs Auto 0.000 0.0 - 0.012 X10*3/uL [facility] Blood Venous blood specimen / Unknown 01/06/2025 10:20 AM EDT 01/06/2025 1:55 PM EDT Maryann Galarza MD LAB BLOOD ORDERABLES Final Re sult Performing Organization Address [facility] Co de Phone Number [facility] [address] [place] [phone] * Hepatitis C Antibody with Reflex to HCV, RNA, Quantitative, Real-Time PCR (01/06/2025 10:20 AM EDT) Hepatitis C Antibody Nonreactive Nonreactive [facility] Comment:Antibodies to HCV no t detected; does not exclude early acuteHCV infection. Blood Venous blood specimen / Unknown 01/06/2025 10:20 AM EDT 01/06/2025 1:47 PM EDT us Maryann Galarza MD LAB BLOOD ORDERABLES Final Re sult Performing Organization Address [facility] Co de Phone Number [facility] [address] [place] [phone] * HIV-1/2 Antigen and Antibodies, Fourth Generation, with Reflexes (01/06/2025 10:20 AM EDT) HIV AB/AG Nonreactive Nonreactive [facility] Comment:HIV-1 p24 Ag and/or HIV-1/HIV-2 Ab not detected.A test result that is nonreactive does not exclude thepossibility of exposure to or infection with HIV-1 and/orHIV-2. Nonreactive results in this assay for individualswith prior exposure to HIV-1 and/or HIV-2 may be due toantigen and antibody levels that are below the limit ofdetection of this assay.The [employer] HIV Ag/Ab Combo assay result andsupplemental assay results should be interpreted inconjunction with the patient's clinical presentation,history and other laboratory results. If the results areinconsistent with clinical evidence, additional testing issuggested to confirm the result. Blood Venous blood specimen / Unknown 01/06/2025 10:20 AM EDT 01/06/2025 1:47 PM EDT us Maryann Galarza MD LAB BLOOD ORDERABLES Final Re sult [facility] [address] [place] [address] [phone] * (ABNORMAL) Lipid Panel, Standard (01/06/2025 10:20 AM EDT) Triglycerides 87 <150 mg/dL [facility] Comment:Desirable Triglyceri de: less than 150 mg/dLBorderline High Triglyceride 150-199 mg/dLHigh Triglyceride: 200-499 mg/dLVery High Triglyceride: greater than or equal to 5OO mg/dL Cholesterol 148 <200 mg/dL [facility] Comment:Desirable Cholestero l: less than 200 mg/dLBorderline High Cholesterol: 200-239 mg/dLHigh Cholesterol: greater than 239 mg/dL LDL Cholesterol Calculated 92 <100 mg/dL [facility] Comment:Desirable LDL: less than 100 mg/dLNear Optimal/Above Optimal LDL: 110- 129 mg/dLBorderline High LDL: 130-159 mg/dLHigh LDL: 160-189 mg/dLVery High LDL: greater than or equal to 190 mg/dL HDL Cholesterol 39(L) >40 mg/dL [facility] Comment:Desirable HDL: great er than 40 mg/dL Note: This HDL assay may give artificially low results in patients with liver disease. Blood Venous blood specimen / Unknown 01/06/2025 10:20 AM EDT 01/06/2025 1:47 PM EDT us Maryann Galarza MD LAB BLOOD ORDERABLES Final Re sult [facility] [address] [place] [phone] [phone] * (ABNORMAL) Comprehensive Metabolic Panel (01/06/2025 10:20 AM EDT) Sodium 142 135 - 145 mmol/L [facility] Potassium 4.1 3.3 - 5.1 mmol/L [facility] Chloride 110(H) 96 - 108 mmol/L [facility] Carbon Dioxide 26 22 - 29 mmol/L [facility] Anion Gap 10(L) 12 - 20 [facility] Urea Nitrogen (BUN) 8(L) 9 - 16 mg/dL [facility] Creatinine, Serum 0.59 0.5 - 1.4 mg/dL [facility] Estimated Glomerular Filt Rate >60 [facility] Comment:Chronic Kidney Disea se: Estimated GFR < 60 mL/min/1.78o8Upvwfs Kidney Disease: Estimated GFR < 15 mL/min/1.73m2 Glucose 97 60 - 115 mg/dL [facility] Calcium 9.1 8.4 - 10.2 mg/dL [facility] Bilirubin, Total 0.6 0.0 - 1.0 mg/dL [facility] Aspartate Amino Transferase 24 5 - 31 U/L [facility] Alanine Aminotransferase 36(H) 0 - 31 U/L [facility] Total Protein 7.5 6.5 - 8.0 g/dL [facility] Albumin Level 4.7 3.5 - 5.0 g/dL [facility] Alkaline Phosphatase 70 39 - 117 U/L [facility] Blood Venous blood specimen / Unknown 01/06/2025 10:20 AM EDT 01/06/2025 1:47 PM EDT us Maryann Galarza MD LAB BLOOD ORDERABLES Final Re sult [facility] [address] [place] [address] [phone] * POCT Urine (01/06/2025 9:49 AM EDT) Preg Test, Ur Negative Negative, Indeterminate, None Detected, Invalid, Specimen unsatisfactory for evaluation, Weakly Positive, 2+ QC Media Lot # [id number] Lot# Expiration Date [id number] Urine 01/06/2025 9:49 AM EDT us Maryann Galarza MD POINT OF CARE TEST ENTER/EDIT ORDERABLES Final Result * ME REMOVAL INTRAUTERINE DEVICE IUD (01/06/2025 9:20 AM EDT) Narrative Maryann Galarza MD - 01/06/2025 9:20 AM EDT Maryann Galarza MD 01/06/2025 11:20 AM IUD Management Performed by: Maryann Galarza MD Authorized by: Maryann Galarza MD Procedure: IUD removal Consent obtained by patient, parent, or legal power of commercial attorney - including discussion of procedure risks [...] Galarza MD IN CLINIC/BEDSIDE ORDERABLES Final Result from Last 3 Months Insurance [facility] HMO Care Teams Svp Marketing Relationship Specialty Start Date End Date Maryann Galarza MD [address] [place] [phone] PCP - General Family Medicine 02/11/24
--- OUTSIDE RECORDS SUMMARY | 2025-01-07 17:53 | XMS_ITS | Encounter Summary ---
Author Organization [employer] Address [address] [address] [facility] [facility] [address] [place] [address] Care Team Providers Care Commercial Fisher Name Role Phone Maryann Galarza MD Primary Care Provider [phone] Encounter Details Date Type Department Care Team (Late st Contact Info) Description 04/01/2024 Orders Only [facility] [address] [place] [address] Provider, MD Mike Social History Tobacco Use [...] documented as of this encounter Care Teams Commercial Fisher Relationship Specialty Start Date End Date Maryann Galarza MD [address] [place] [phone] PCP - General Family Medicine 02/11/24 documented as of this encounter
[2025-01-08 21:37] LABS: C. trachomatis RNA TMA NOT DETECTED (NOT DETECTED); N. gonorrhoeae RNA TMA NOT DETECTED (NOT DETECTED); Trichomonas (NAAT) NOT DETECTED (NOT DETECTED)
== END 2025-01-06 10:01 | disposition home or self-care (01) ==
LOC: HO.LNP 10:00
PROVIDERS: Visit Provider Family Medicine
DX: Z30.432 Encounter for removal of intrauterine contraceptive device (principal); E66.3 Overweight
CPT/HCPCS: 87491; 87591; 87626; 87661; 88175

== ENCOUNTER 2025-01-06 10:16 | Outpatient (REF) | payer BC, SELFPAY ==
--- OUTSIDE RECORDS SUMMARY | 2025-01-06 09:20 | XMS_ITS | Encounter Summary ---
Author Organization [employer] Address [address] [facility] [address] [facility] [address] [place] [address] Care Team Providers Care Clinic Physician Director Name Role Phone Maryann Galarza MD Primary Care Provider [phone] Reason for Visit * Reason Comments Cervical Cancer Screening Encounter Details Date Type Department Care Team (Latest Contact Info) Description 01/06/2025 9:20 AM EDT Office Visit [facility] [address] [place], [place] [phone] Maryann Galarza MD [address] [place] [address] Encounter for removal of intrauterine contraceptive device [...] Exam Vitals reviewed. Exam conducted with a welcome center attendant present. HENT: Head: Normocephalic and atraumatic. Pulmonary: [...] by patient, parent, or legal power of claim attorney - including discussion of procedurerisks and [...] for immunization Relevant Orders FLU VACCINE TRIVALENT [id number] (Fluarix) 19 yrs + STD (female) Relevant [...] complications * Assessment & Plan Note - aMryann Galarza MD - 01/06/2025 10:22 AM EDT [...] of intrauterine contraceptive device (IUD) Ordered: 01/06/2025 Lipid Panel, Standard Lab Routine Overweight Expected: 01/06/2025 (Approximate), Expires: 01/06/2026 CBC auto differential Lab Routine Overweight Expected: 01/06/2025 (Approximate), Expires: 01/06/2026 Comprehensive Metabolic Panel Lab Routine Overweight Expected: 01/06/2025 (Approximate), Expires: 01/06/2026 TSH W/Reflex to FT4 Lab Routine Overweight Expected: 01/06/2025 (Approximate), Expires: 01/06/2026 Syphilis Screen Lab Routine STD (female) Expected: 01/06/2025, Expires: 01/06/2026 Hepatitis C Antibody with Reflex to HCV, RNA, Quantitative, Real-Time PCR Lab Routine STD (female) Expected: 01/06/2025, Expires: 01/06/2026 HIV-1/2 Antigen and Antibodies, Fourth Generation, with Reflexes Lab Routine STD (female) Expected: 01/06/2025 (Approximate), Expires: 01/06/2026 STI testing add on (NG, CT, Trich) Pathology and Cytology Routine Encounter for removal of intrauterine contraceptive device (IUD) Ordered: 01/06/2025 documented as of this encounter Procedures Procedure Name Priority Date/Time Associated Diagnosis Comments POCT , URINE Routine 01/06/2025 9:49 AM EDT Encounter for removal of intrauterine contraceptive device (IUD) [place] REMOVAL INTRAUTERINE DEVICE IUD Routine 01/06/2025 9:20 AM EDT Cervical cancer screening documented in this encounter Results * POCT Urine (01/06/2025 9:49 AM EDT) Preg Test, Ur Negative Negative, Indeterminate, None Detected, Invalid, Specimen unsatisfactory for evaluation, Weakly Positive, 2+ QC Media Lot # [id number] Lot# Expiration Date [id number] Urine 01/06/2025 9:49 AM EDT Maryann Galarza MD POINT OF CARE TEST ENTER/EDIT ORDERABLES Final Result * MN REMOVAL INTRAUTERINE DEVICE IUD (01/06/2025 9:20 AM EDT) Narrative Maryann Galarza MD - 01/06/2025 9:20 AM EDT Maryann Galarza MD 01/06/2025 11:20 AM IUD Management Performed by: Maryann Galarza MD Authorized by: Maryann Galarza MD Procedure: IUD removal Consent obtained by patient, parent, or legal power of claim attorney - including discussion of procedure risks [...] under direct supervision from Chastity Galarza MD us Maryann Galarza MD IN CLINIC/BEDSIDE ORDERABLES Final [...] documented as of this encounter Care Teams Clinic Physician Director Relationship Specialty Start Date End Date Maryann Galarza MD [address] [place] [phone] PCP - General Family Medicine 02/11/24 documented as of this encounter
--- OUTSIDE RECORDS SUMMARY | 2025-01-06 12:02 | XMS_ITS | Clinical Summary ---
Author Organization [employer] Address 75 [facility] 7t [place] [address] Care Team Providers Care Orthodontic Lab Technician Name Role Phone Maryann Galarza MD Primary Care Provider [phone] Allergies Active Allergy Reactions Criticality Noted Date Comments Shrimp Flavor Agent (Non-Screening) Hives,Itching 03/04/2024 Medications omeprazole (PriLOSEC) [address] capsule Take 1 capsule (20 mg) by mouth before breakfast. 90 capsule 1 4 02/12/20 25 Active Meclizine HCl 25 MG chewable tablet Active benzonatate (Tessalon) 100 MG capsule Take 100 mg by mouth 3 times daily. 4 Active albuterol 108 (90 Base) MCG/ACT inhaler TAKE 2 PUFFS (INHALATION) 4 TIMES PER DAY (SHORTNESS OF BREATH OR WHEEZING) FOR 14 DAYS 4 Active levonorgestrel (Plan B) 1.5 MG tablet Take 0.5 tablets (0.75 mg) by mouth every 12 (twelve) hours for 1 day. 1 tablet 5 01/08/20 25 Active oxyCODONE (Roxicodone) 5 MG immediate release tablet Take 5 mg by mouth every 6 (six) hours if needed. 4 01/07/20 25 Discontinu ed(Therapy completed) Active Problems Problem Noted Date Diagnosed Date Encounter for removal of int rauterine contraceptive device (IUD) 01/06/2025 Assessment & Plan (01/06/2025 10:23 AM EDT): Removed. No complications Cervical cancer screening 01/06/2025 Assessment & Plan (01/06/2025 10:23 AM EDT): 39 y.o. here for cervical cancer screening. Will continue monitoring following ASCCP guidelines. Overweight 03/05/2024 Assessment & Plan (01/06/2025 10:22 AM EDT): Will check labs Assessment & Plan (03/05/2024 2:54 PM EST): Ordering labs and referring to Website/Blog Editor for further evaluation. Advised pt to schedule [...] Encounters Date Type Department Care Team Description 01/06/2025 9:20 AM EDT Office Visit [facility] [address] [place] [address] Maryann Galarza MD Encounter for removal of intrauterine contraceptive device (IUD) (Primary Dx); Encounter for immunization; Overweight; STD (female); Cervical cancer screening 01/06/2025 Travel from Last 3 Months Immunizations Immunization Administration Dates Next Due Hep B, adult 12/11/2014,10/16/2014 HepB-CpG 07/27/2022,06/26/2022 Influenza injectable quadriv alent preservative free 12/27/2020,02/14/2016,12/11/2014 Influenza, IIV3, injectable 02/13/2024 Influenza, seasonal, injecta ble, preservative free 01/06/2025,02/13/2024 MMR 04/26/2014 Pfizer Covid-19 Vaccine 12+ 03/05/2024 Pneumococcal Polysaccharide PPSV23 02/14/2016 Tdap 03/05/2024,07/23/2015,04/26/2014 Varicella 04/26/2014 Family History Medical History Relation Name Comments [...] Mass Index 26.14 01/06/2025 9:18 AM EDT Plan of Treatment Health Maintenance Due Date Last Done Comments Disability Screening 1984 Family Planning (PISQ) 07/31/1999 HPV Vaccines (1 - 3-dose series) 07/31/1999 Pap Smear 2005 Cervical Cancer Screening 2014 HPV/Cotest 2014 Mammogram 2024 SDOH Screening 02/19/2025 02/20/2024 Alcohol/Substance Use Screening 03/05/2025 03/05/2024 Depression Screening 03/05/2025 03/05/2024, 03/05/20 24 Tobacco Screening 01/06/2026 01/06/2025 DTaP/Tdap/Td Vaccines (4 - Td or Tdap) 03/05/2034 03/05/2024, 07/23/2015, 04/26/2014 Zoster Vaccines (1 of 2) 2034 RSV Patients and Patients Aged 60 years or older (1 - 1-dose 75+ series) 07/31/2059 Pneumococcal Vaccine: Pediatrics (0 to 5 Years) and At-Risk Patients (6 to 49) Years Aged Out 02/14/2016 No longer eligible based on patient's age to complete this topic Hepatitis B Vaccines Completed 07/27/2022, 06/26/2022, 12/11/2014, Additional history exists COVID-19 Vaccine Completed 03/05/2024, 03/2020, 05/03/2020, Additional history exists HIV Screening Completed 05/09/2024 Hepatitis C Screening Completed 05/09/2024, 025 Influenza Vaccine Completed 01/06/2025, , 02/13/2024, Additional history exists HIB Vaccines Aged Out No longer eligi ble based on patient's age to complete this topic Hepatitis A Vaccines Aged Out No long er eligible based on patient's age to complete this topic IPV Vaccines Aged Out No longer eligi ble based on patient's age to complete this topic Meningococcal B Vaccine Aged Out No l onger eligible based on patient's age to complete [...] for removal of intrauterine contraceptive device (IUD) MD REMOVAL INTRAUTERINE DEVICE IUD Routine 01/06/2025 9:20 AM EDT Cervical cancer screening HEPATITIS C AB W/REFL TO HCV RNA, QN, PCR Routine 05/09/2024 9:15 AM EST Encounter for health-related screening HIV 1/2 ANTIGEN/ANTIBODY, FOURTH GENERATION W/RFL Routine 05/09/2024 9:15 AM EST Encounter for health-related screening from Last 3 Months or Most Recently Relevant to Health Maintenance Results * POCT Urine (01/06/2025 9:49 AM EDT) Preg Test, Ur Negative Negative, Indeterminate, None Detected, Invalid, Specimen unsatisfactory for evaluation, Weakly Positive, 2+ QC Media Lot # [id number] Lot# Expiration Date [id number] Urine 01/06/2025 9:49 AM EDT Maryann Galarza MD POINT OF CARE TEST ENTER/EDIT ORDERABLES Final Result * MD REMOVAL INTRAUTERINE DEVICE IUD (01/06/2025 9:20 AM EDT) Narrative Maryann Galarza MD - 01/06/2025 9:20 AM EDT Maryann Galarza MD 01/06/2025 11:20 AM IUD Management Performed by: Maryann Galarza MD Authorized by: Maryann Galarza MD Procedure: IUD removal Consent obtained by patient, parent, or legal power of transactional attorney - including discussion of procedure risks [...] Galarza MD IN CLINIC/BEDSIDE ORDERABLES Final Result * Hepatitis C Antibody with Reflex to HCV, RNA, Quantitative, Real-Time PCR (05/09/2024 9:15 AM EST) Hepatitis C Antibody GRAYZONE Nonreactive [facility] Comment:Antibodies to HCV ma y or may not be present. Suggest repeatanti-HCV in 4-6 weeks and/or HCV viral load if clinicallyindicated. Blood Venous blood specimen / Unknown 05/09/2024 9:15 AM EST 05/09/2024 2:12 PM EST us Maryann Galarza MD LAB BLOOD ORDERABLES Final Re sult Performing Organization Address City/[facility]/ZIP Co de Phone Number [facility] [address] [place] [address] [phone] * HIV-1/2 Antigen and Antibodies, Fourth Generation, with Reflexes (05/09/2024 9:15 AM EST) HIV AB/AG Nonreactive Nonreactive [facility] Comment:HIV-1 p24 Ag and/or HIV-1/HIV-2 Ab not detected.A test result that is nonreactive does not exclude thepossibility of exposure to or infection with HIV-1 and/orHIV-2. Nonreactive results in this assay for individualswith prior exposure to HIV-1 and/or HIV-2 may be due toantigen and antibody levels that are below the limit ofdetection of this assay.[employer] HIV Ag/Ab Combo assay result andsupplemental assay results should be interpreted inconjunction with the patient's clinical presentation,history and other laboratory results. If the results areinconsistent with clinical evidence, additional testing issuggested to confirm the result. Blood Venous blood specimen / Unknown 05/09/2024 9:15 AM EST 05/09/2024 2:12 PM EST us Maryann Galarza MD LAB BLOOD ORDERABLES Final Re sult Performing Organization Address [place]/[facility]/ZIP Co de Phone Number [facility] [address] [place] [address] [phone] from Last 3 Months or Most Recently Relevant to Health Maintenance Insurance [facility] HMO Care Teams Orthodontic Lab Technician Relationship Specialty Start Date End Date Maryann Galarza MD [address] [place] [phone] PCP - General Family Medicine 02/11/24
--- OUTSIDE RECORDS SUMMARY | 2025-01-06 12:03 | XMS_ITS | Encounter Summary ---
Author Organization [employer] Address [address] [facility] [address] [place] [address] Care Team Providers Care Portable Sawmill Operator Name Role Phone Maryann Galarza MD Primary Care Provider [phone] Encounter Details Date Type Department Care Team (Latest Contact Info) Description 01/06/2025 Travel Social History Tobacco Use Types Packs/Day [...] as of this encounter Plan of Treatment Not on file documented as of this encounter Visit Diagnoses Not on filedocumented in this encounter Additional Health Concerns Assessment Noted Time PHQ-9 Depression Total Score: 3 03/05/20 2:24 PM EST documented as of this encounter Care Teams Portable Sawmill Operator Relationship Specialty Start Date End Date Maryann Galarza MD [address] [place] [phone] PCP - General Family Medicine 02/11/24 documented as of this encounter
--- OUTSIDE RECORDS SUMMARY | 2025-01-06 12:03 | XMS_ITS | Encounter Summary ---
Author Organization [employer] Address 75 [facility] 7t [place] [address] Care Team Providers Care Private Branch Exchange Installer Name Role Phone Christiano Queen MD Primary Care Prov ider Maryann Galarza MD Primary Care Provider [phone] Encounter Details Date Type Department Care Team (Late st Contact Info) Description 12/20/2023 Orders Only [facility] [address] [place] [address] Provider, Mike, Social History Tobacco Use Types Packs/Day Years [...] on file documented as of this encounter Procedures Procedure [...] Time PHQ-9 Depression Total Score: 0 12/17/19 24 2:26 PM EDT documented as of this encounter Care Teams Private Branch Exchange Installer Relationship Specialty Start Date End Date Christiano Queen MD [address] [place] [address] PCP - General Internal Medicine 12/19/23 02/10/24 Maryann Galarza MD [address] [place] [address] PCP - General Family Medicine 02/11/24 documented as of this encounter
--- OUTSIDE RECORDS SUMMARY | 2025-01-06 12:03 | XMS_ITS | Encounter Summary ---
Author Organization [employer] Address [address] [facility] [address] [place] [address] Care Team Providers Care Peripheral Vascular Tech Name Role Phone Maryann Galarza MD Primary Care Provider [phone] Encounter Details Date Type Department Care Team (Late st Contact Info) Description 04/01/2024 Orders Only [facility] [address] [place] [address] Provider, MD Mike Social History Tobacco Use [...] is your housing situation today? I have jacquelineellis ford 02/20/[address] you [...] documented as of this encounter Care Teams Peripheral Vascular Tech Relationship Specialty Start Date End Date Maryann Galarza MD [address] [place] [phone] PCP - General Family Medicine 02/11/24 documented as of this encounter
[2025-01-06 13:58] LABS: MANUAL DIFF FLAG NO
[2025-01-06 14:01] LABS: Hematocrit 39.3 % (37.0-47.0); Hemoglobin 12.1 g/dl (12.0-16.0); Imm Gran Abs Auto 0.02 X10*3/uL (0.00-0.03); Imm Gran Pct Auto 0.3 % (0.0-0.4); Lymphocytes Absolute Auto 2.1 X10*3/uL (1.2-4.9); Mean Corpuscular HGB Conc 30.8 g/dl (31.0-35.0); Mean Corpuscular Hemoglobin 26.2 pg (27.0-33.0); Mean Corpuscular Volume 85.1 fL (80.0-98.0); NRBC Abs Auto 0.000 X10*3/uL (0.0-0.012); NRBC Pct Auto 0.0 /100WBC (0.0-0.2); Platelet Count 242 X10*3/uL (160-400); Red Blood Count 4.62 X10*6/uL (4.20-5.50); White Blood Count 7.2 X10*3/uL (4.8-10.8)
[2025-01-06 14:31] LABS: Alanine Aminotransferase 36 U/L (0-31); Albumin Level 4.7 g/dL (3.5-5.0); Alkaline Phosphatase 70 U/L (39-117); Anion Gap 10 (12-20); Aspartate Amino Transferase 24 U/L (5-31); Blood Urea Nitrogen 8 mg/dL (9-16); Calcium 9.1 mg/dL (8.4-10.2); Carbon Dioxide 26 mmol/L (22-29); Chloride 110 mmol/L (96-108); Cholesterol 148 mg/dL (<200); Estimated Glomerular Filt Rate > 60; HDL Cholesterol 39 mg/dL (>40); Potassium 4.1 mmol/L (3.3-5.1); Sodium 142 mmol/L (135-145); Total Protein 7.5 g/dL (6.5-8.0); Triglycerides 87 mg/dL (<150)
[2025-01-07 03:11] LABS: Syphilis Screen Nonreactive (Nonreactive)
[2025-01-07 03:42] LABS: HIV Num 1 0.04 S/CO (0.00-0.99); ~HepC Num1 0.49 S/CO (0.00-0.79); ~Hepatitis C Antibody Nonreactive (Nonreactive)
== END 2025-01-06 10:17 | disposition home or self-care (01) ==
LOC: HO.CHCLDS 10:16
PROVIDERS: Visit Provider Family Medicine
DX: E66.3 Overweight (principal); A64 Unspecified sexually transmitted disease
CPT/HCPCS: 36415; 80053; 80061; 84443; 85025; 86780; 86803; 87389